=== PATIENT | female | born 1970 | race Caucasian/White ===

== ENCOUNTER 2017-02-03 18:46 | Emergency (ER) | payer MEDICAID ==
[~2017-02-03] VITALS: Ht 182.9 cm; Wt 95.3 kg
[2017-02-03 18:50] VITALS: BP 122/66; PULSE 69; RESP 19; TEMP 98.6; O2SAT 100
--- NOTE | 2017-02-03 19:35 | NUR ---
PT C/O BOND PRESSURE 10/10. +PHOTOPHOBIA, NO N/V/D. AFEBRILE. NO SOB OR DISTRESS. SAFETY PRECAUTIONS IN PLACE, WILL CONTINUE TO MONITOR.
--- NOTE | 2017-02-03 19:35 | NUR ---
ER Dr. STUBBS at bedside examining patient.
[2017-02-03] MEDS ORDERED: NS 500 ML IV ONE (19:45)
[2017-02-03] MEDS ORDERED: KETOROLAC TROMETHAMINE 30 MG VIAL IVP ONE (19:45)
[2017-02-03] MEDS ORDERED: PROCHLORPERAZINE EDISYLATE 10 MG/2 ML VIAL IVP ONE (19:45)
[2017-02-03] MEDS ORDERED: DEXAMETHASONE SOD PHOSPHATE 10 MG/ML VIAL IVP ONE (19:45)
--- NOTE | 2017-02-03 19:59 | NUR ---
Patient to ER bed 5 to gown for evaluation. Side rails up. Report given to ISAAC MOSELEY.
[2017-02-03 20:53] LABS: BASOPHILS # (AUTO) 0.1 K/uL (0.0-0.2); BASOPHILS % (AUTO) 0.9 % (0.0-2.0); EOSINOPHILS # (AUTO) 0.1 K/uL (0.0-0.4); EOSINOPHILS % (AUTO) 1.6 % (0.0-4.0); HEMATOCRIT 36.4 % (36-48); HEMOGLOBIN 12.3 g/dL (12.0-16.0); LYMPHOCYTES # (AUTO) 2.3 K/uL (1.0-5.5); LYMPHOCYTES % (AUTO) 28.8 % (20.5-51.5); MEAN CORPUSCULAR HEMOGLOBIN 29 pg (27-31); MEAN CORPUSCULAR HGB CONC 34 % (32-36); MEAN CORPUSCULAR VOLUME 84 fL (79.0-98.0); MONOCYTES # (AUTO) 0.8 K/uL (0.0-1.0); MONOCYTES % (AUTO) 10.4 % (1.7-9.3); NEUTROPHILS # (AUTO) 4.6 K/uL (1.8-7.7); NEUTROPHILS % (AUTO) 58.3 % (40.0-70.0); PLATELET COUNT (AUTO) 242 K/uL (130-430); RED BLOOD CELL COUNT(AUTO) 4.32 MIL/uL (4.2-6.2); RED CELL DISTRIBUTION WIDTH 14.1 % (9.0-15.0); WHITE BLOOD COUNT (AUTO) 7.9 K/uL (4.8-10.8)
[2017-02-03 20:54] LABS: CALCIUM 8.6 mg/dL (8.4-11.0); CREATININE 0.91 mg/dL (0.55-1.30); POTASSIUM 3.8 mmol/L (3.5-5.1)
[2017-02-03 21:11] VITALS: BP 122/66; PULSE 69; RESP 19; TEMP 98.6; O2SAT 100
--- NOTE | 2017-02-03 21:11 | NUR ---
Patient given written and verbal discharge instructions and verbalizes understanding. ER MD DR. STUBBS discussed with patient the results and treatment provided. Patient in stable condition. ID arm band removed. IV catheter removed intact and dressing applied, no active bleeding. Rx of IBUPROFEN given. Patient educated on pain management and to follow up with PMD. Pain Scale 2/10, PT STATES SHE FEELS MUCH BETTER, AMBULATED W/ STEADY GAIT. Opportunity for questions provided and answered.
== END 2017-02-03 21:11 | disposition home or self-care (01) ==
LOC: SED 18:46
DX: G93.0 Cerebral cysts (principal)
CPT/HCPCS: 36415; 70450; 80048; 85025; 96361; 96374; 96375; 99285; J0780; J1100; J1885; J7040

== ENCOUNTER 2023-09-03 06:47 | Day surgery (SDC) | payer MEDICAID ==
[~2023-09-03] VITALS: Ht 182.9 cm; Wt 99.8 kg
[2023-09-03] MEDS ORDERED: fentaNYL CITRATE/PF 100 MCG/2 ML AMP ONE ×2 (07:50→09:09)
[2023-09-03] MEDS ORDERED: MIDAZOLAM HCL 5 MG/5 ML VIAL ONE ×2 (07:50→09:09)
[2023-09-03 08:43] LABS: HCG,QUAL RESULT NEGATIVE (NEGATIVE)
[2023-09-03] MEDS ORDERED: DIPHENHYDRAMINE INJ 50 MG/ML VIAL ONE (09:08)
[2023-09-03 15:29] VITALS: BP_SYST 113; PULSE 53; RESP 18; TEMP 96.4; O2SAT 97
== END 2023-09-03 10:50 | disposition home or self-care (01) ==
LOC: SDS 06:47 → SMU 06:51 → SDS 10:50
PROVIDERS: ATTEND Internal Medicine
DX: D50.9 Iron deficiency anemia, unspecified (principal); K29.50 Unspecified chronic gastritis without bleeding; K63.5 Polyp of colon; Z80.0 Family history of malignant neoplasm of digestive organs; K57.30 Diverticulosis of large intestine without perforation or abscess without bleeding; K64.8 Other hemorrhoids; F41.9 Anxiety disorder, unspecified; F17.210 Nicotine dependence, cigarettes, uncomplicated; Z79.899 Other long term (current) drug therapy
CPT/HCPCS: 45380; 43239; 99152; 87081; 84703; 36415; 88305; 88312; 88313; 99153; G0378; J1200; J2250; J3010